=== PATIENT | female | born 1985 | race Hispanic/Latino ===

== ENCOUNTER 2021-05-25 10:30 | Emergency (ER) | payer MEDICAID ==
--- NOTE | 2021-05-25 11:13 | XRay Report ---
CHEST 2 VIEWS INDICATION / CLINICAL INFORMATION: chest pain/burning. COMPARISON: None available. FINDINGS: SUPPORT DEVICES: None. HEART / MEDIASTINUM: No significant abnormality. LUNGS / PLEURA: No significant pulmonary or pleural abnormality. No pneumothorax. ADDITIONAL FINDINGS: No significant additional findings. IMPRESSION: 1. No acute findings. Signer Name: Neda Rangel MD Signed: 05/25/2021 11:08 AM Workstation Name: [id number]
[2021-05-25 13:08] LABS: Basophils % (Auto) 0.2 % (0.0-1.8); Eosinophils % (Auto) 0.7 % (0.0-4.3); Hematocrit 42.3 % (30.3-42.9); Hemoglobin 14.4 gm/dl (10.1-14.3); Lymphocytes # (Auto) 1.1 K/mm3 (1.2-5.4); Lymphocytes % (Auto) 15.6 % (13.4-35.0); Mean Corpuscular HGB Conc 34 % (30-34); Mean Corpuscular Volume 97 fl (79-97); Monocytes # (Auto) 0.7 K/mm3 (0.0-0.8); Monocytes % (Auto) 10.9 % (0.0-7.3); Platelet Count 179 K/mm3 (140-440); Red Blood Count 4.38 M/mm3 (3.65-5.03); Red Cell Distribution Width 12.9 % (13.2-15.2)
[2021-05-25] MEDS ORDERED: LIDOCAINE VISCOUS 2% 15 ML ORAL LIQD PO ONE (13:14)
[2021-05-25] MEDS ORDERED: FAMOTIDINE 20 MG TAB PO ONE (13:14)
[2021-05-25] MEDS ORDERED: ALUM-MAG HYDROXIDE-SIMETHICONE 200-200-20MG/5ML ORAL LIQD 30 ML PO ONE (13:14)
--- NOTE | 2021-05-25 13:14 | Emergency Department Report ---
ED Chest Pain HPI - General Chief Complaint: Chest Pain Stated Complaint: CHEST PAIN x2days Time Seen by Provider: 05/25/21 12:05 Source: patient Mode of arrival: Ambulatory Limitations: No Limitations - History of Present Illness Initial Comments: 35-year-old female presents with complaints of substernal burning chest pain x3 days. Patient states the pain radiates to both sides of her chest and worsens with deep inhalation. She reports a history of pneumothorax and states her symptoms feel similar. She denies any trauma to her chest, h emoptysis, fever, or loss of taste or smell. She does admit to a mild cough and mild shortness of breath. The cough is nonproductive per patient. She denies any cardiac history or family cardiac history. She rates her current pain is a 6/10 in severity. She also denies any leg pain/swelling, history of DVT/PE, hormone use, or recent long travel/surgeries. No history of GERD or heavy alcohol use per patient. She does admit to history of cervical cancer at the age of 14 and denies any current chemo - Related Data Previous Rx's Medication Instructions Recorded Last Taken Type Famotidine [Pepcid] 20 mg PO BID PRN 10 Days #20 tablet 05/25/21 Unknown Rx Sucralfate [Carafate] 1 gm PO Q6HR PRN #30 udc 05/25/21 Unknown Rx Allergies Allergy/AdvReac Type Severity Reaction Status Date / Time meperidine [From Demerol] Allergy Rash Verified 05/25/21 10:48 Heart Score - HEART Score History: Slightly suspicious EKG: Normal Age: < 45 Risk factors: No known risk factors Troponin: < normal limit HEART Score: 0 - EKG Read Time Time EKG Completed: 10:41 EKG Read Time: 10:45 - Critical Actions Critical Actions: 0-3 pts:0.9-1.7%risk of adverse cardiac event.Candidate for discharge ED Review of Systems ROS: Stated complaint: CHEST PAIN x2days Other details as noted in HPI Constitutional: chills, malaise. denies: diaphoresis, fever, weakness ENT: denies: throat pain Respiratory: cough, shortness of breath Cardiovascular: chest pain Gastrointestinal: denies: nausea, vomiting, diarrhea Genitourinary: denies: dysuria Musculoskeletal: denies: arthralgia Neurological: denies: headache Hematological/Lymphatic: denies: swollen glands ED Past Medical Hx - Past Medical History Previous Medical History?: No - Surgical History Past Surgical History?: No - Social History Smoking Status: Current Every Day Smoker Substance Use Type: Marijuana - Medications Home Medications: Home Medications Medication Instructions Recorded Confirmed Last Taken Type Famotidine [Pepcid] 20 mg PO BID PRN 10 Days #20 tablet 05/25/21 Unknown Rx Sucralfate [Carafate] 1 gm PO Q6HR PRN #30 udc 05/25/21 Unknown Rx ED Physical Exam - General Limitations: No Limitations General appearance: alert, in no apparent distress - Head Head exam: Present: atraumatic, normocephalic - Eye Eye exam: Present: normal appearance. Absent: scleral icterus - ENT ENT exam: Present: normal orophraynx - Neck Neck exam: Present: normal inspection, full ROM. Absent: tenderness - Respiratory Respiratory exam: Present: normal lung sounds bilaterally, chest wall tenderness (Bilateral parasternal). Absent: respiratory distress - Cardiovascular Cardiovascular Exam: Present: regular rate, normal rhythm. Absent: systolic murmur, diastolic murmur, rubs, gallop - GI/Abdominal GI/Abdominal exam: Present: soft, normal bowel sounds. Absent: distended, tenderness, guarding, rebound, rigid - Back Exam Back exam: Present: full ROM - Neurological Exam Neurological exam: Present: alert, oriented X3, normal gait - Psychiatric Psychiatric exam: Present: normal affect, normal mood - Skin Skin exam: Present: warm, dry, intact, normal color. Absent: rash, cyanosis, diaphoretic, ecchymosis ED Medical Decision Making - Lab Data Result diagrams: 05/25/21 12:42 05/25/21 12:42 - EKG Data EKG shows normal: sinus rhythm Rate: normal - EKG Data Interpretation: normal EKG - Radiology Data Radiology results: report reviewed CHEST 2 VIEWS INDICATION / CLINICAL INFORMATION: chest pain/burning. COMPARISON: None available. FINDINGS: SUPPORT DEVICES: None. HEART / MEDIASTINUM: No significant abnormality. LUNGS / PLEURA: No significant pulmonary or pleural abnormality. No pneumothorax. ADDITIONAL FINDINGS: No significant additional findings. IMPRESSION: 1. No acute findings. - Medical Decision Making 35-year-old female presents with complaints of substernal burning chest pain x3 days. Patient states the pain radiates to both sides of her chest and worsens with deep inhalation. She reports a history of pneumothorax and states her symptoms feel similar. She denies any trauma to her chest, hemoptysis, fever, or loss of taste or smell. She does admit to a mild cough and mild shortness of breath. The cough is nonproductive per patient. She denies any cardiac history or family cardiac history. She rates her current pain is a 6/10 in severity. She also denies any leg pain/swelling, history of DVT/PE, hormone use, or recent long travel/surgeries. No history of GERD or heavy alcohol use per patient. She does admit to history of cervical cancer at the age of 14 and denies any current chemo Heart score = 0. PERC score = 0. Chest x-ray is normal. CBC, CMP, and troponin x2 are normal. Patient given GI cocktail and Pepcid. She states her symptoms have resolved. Suspect GERD, however given low-grade fever of 99.6 and cough, cannot rule out COVID-19. Patient advised to seek outpatient testing and provided with outpatient testing facility list for COVID-19. She is otherwise well-appearing, ambulatory, vitals are normal, and she is stable for discharge home. Discussed in great detail signs and symptoms that should prompt immediate return to the emergency department with patient who verbalized understanding. She is to follow-up with her primary care doctor in 3 to 5 days. Prescription for Pepcid and Carafate given. Patient denies any further questions at this time Critical care attestation.: If time is entered above; I have spent that time in minutes in the direct care of this critically ill patient, excluding procedure time. ED Disposition Clinical Impression: Burning chest pain Disposition: DC-01 TO HOME OR SELFCARE Is pt being admited?: No Condition: Stable Instructions: Nonspecific Chest Pain, Adult, Gastritis, Adult, Prevent the Spread of COVID-19 if You Are Sick - [facility] Prescriptions: Sucralfate [Carafate] 1 gm PO Q6HR PRN #30 udc PRN Reason: heartburn Famotidine [Pepcid] 20 mg PO BID PRN 10 Days #20 tablet PRN Reason: heartburn Referrals: [facility] [Provider Group] - 3-5 Days Forms: Work/School Release Form(ED)
[2021-05-25 13:19] LABS: Alanine Aminotransferase 20 units/L (7-56); Albumin 4.8 g/dL (3.9-5); Blood Urea Nitrogen 8 mg/dL (7-17); Calcium 9.6 mg/dL (8.4-10.2); Hemolysis Index 17
[2021-05-25 13:23] VITALS: BP 103/70
[2021-05-25 13:24] LABS: BUN/Creatinine Ratio 13
--- NOTE | 2021-05-26 10:39 | Electrocardiograph Report ---
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
== END 2021-05-25 14:00 | disposition home or self-care (01) ==
LOC: ED 10:30
DX: R07.9 Chest pain, unspecified (principal); F17.200 Nicotine dependence, unspecified, uncomplicated; F12.929 Cannabis use, unspecified with intoxication, unspecified
CPT/HCPCS: 36415; 71046; 80053; 84484; 84703; 85025; 93005; 99284